=== PATIENT | male | born 1995 | race Caucasian/White ===

== ENCOUNTER 2017-08-17 14:03 | Emergency (ER) | payer OTHER ==
[2017-08-17 14:38] LABS: % IMMATURE GRANULYOCYTES 0.4 % (0.0-1.1); ABSOLUTE IMMATURE GRANULOCYTES 0.03 10^3/uL (0.00-0.10); ADD DIFF? NO; ADD MORPH? NO; ADD SCAN? NO; ATYPICAL LYMPHOCYTE FLAG 10 (0-99); FRAGMENT RBC FLAG 0 (0-99); HEMATOCRIT 50.8 % (40.0-51.0); HEMOGLOBIN 17.3 g/dL (13.7-17.5); LEFT SHIFT FLG 0 (0-99); LIPEMIA HEMOLYSIS FLAG 90 (0-99); MEAN CELL HEMOGLOBIN 31.9 pg (27.9-34.1); MEAN CELL HEMOGLOBIN CONCENTR. 34.1 g/dL (32.4-36.7); MEAN CELL VOLUME 93.7 fL (81.5-99.8); MEAN PLATELET VOLUME 9.9 fL (8.7-11.7); PLATELET CLUMPS FLAG 40 (0-99); PLATELET COUNT 338 10^3/uL (150-400); RED BLOOD CELL COUNT 5.42 10^6/uL (4.40-6.38); RED CELL DISTRIBUTION WIDTH 12.8 % (11.5-15.2)
[2017-08-17 14:56] LABS: ANION GAP 16 mEq/L (8-16); CALCIUM 10.1 mg/dL (8.5-10.4); CARBON DIOXIDE 25 mEq/l (22-31); CHLORIDE 102 mEq/L (97-110); ETHANOL SERUM 157 mg/dL (0-10); GLOMERULAR FILTRATION RATE > 60; GLUCOSE 63 mg/dL (70-100); POTASSIUM 4.2 mEq/L (3.5-5.2); SALICYLATE < 1.0 mg/dL (2.0-20.0); SODIUM 143 mEq/L (134-144)
--- NOTE | 2017-08-17 15:22 | EDPHY ---
H & P Smoking Status: Current every day smoker Time Seen by Provider: 08/17/17 15:04 HPI/ROS: CHIEF COMPLAINT: Overdose, suicidal ideation HISTORY OF PRESENT ILLNESS: 22-year-old male with a history of alcoholism and depression presents after an overdose. He was feeling quite depressed last night and took an overdose of Flexeril, 15 tablets at 7:00 p.m.. He also drank a lot of vodka. He was found this morning on the couch by his roommate. He was minimally responsive. His father brought him to the emergency department. He continues to feel depressed and suicidal. One prior suicidal attempt and mental health admission. REVIEW OF SYSTEMS: Constitutional: No fever, no chills Eyes: No visual changes ENT: No sore throat Respiratory: No cough, no shortness of breath Cardiac: No chest pain Gastrointestinal: No nausea, no vomiting, no abdominal pain Genitourinary: no dysuria Musculoskeletal: No leg pain or swelling Skin: No rash Neurological: No headache (Filomena Leach) Past Medical/Surgical History: Depression Alcoholism (Filomena Leach) Social History: Works at [employer] and [employer] (Filomena Leach) Physical Exam: General Appearance: Drowsy, answers most questions, speech slightly slurred Eyes: Pupils equal and round, no conjunctival pallor or injection ENT, Mouth: Mucous membranes moist Neck: Normal inspection Respiratory: Lungs are clear to auscultation Cardiovascular: Regular rate and rhythm Gastrointestinal: Abdomen is soft and nontender Neurological: drowsy, oriented, nonfocal exam Skin: Warm and dry Extremities: normal inspection, no tenderness or swelling Psychiatric: flat affect (Filomena Leach) Constitutional: Initial Vital Signs Temperature (C) 36.6 C 08/17/17 14:05 Heart Rate 88 08/17/17 14:05 Respiratory Rate 15 08/17/17 14:05 Blood Pressure 124/76 H 08/17/17 14:05 O2 Sat (%) 98 08/17/17 14:05 O2 Delivery Mode Room Air Allergies/Adverse Reactions: No Known Allergies Allergy (Unverified 08/17/17 14:10) Home Medications: Medication Instructions Recorded GABAPENTIN 100 08/17/17 LAMOTRIGINE 08/17/17 Latuda 08/17/17 Medical Decision Making ED Course/Re-evaluation: This patient presents 20 hours after an overdose of Flexeril. He also intoxicated with alcohol. I placed him on a mental health hold. Once he is sober, he will be cleared for mental health evaluation. 11:00 p.m.-signed over to Dr. Maguire at shift change. (Filomena Leach) 4:15 a.m.- The patient remained stable throughout his time in the emergency room. He was evaluated by mental health. He has been accepted for placement at [facility] by Dr. Moore. I have completed the EMTALA form. (Diane Maguire) Differential Diagnosis: Differential diagnosis includes though it is not limited to suicidal ideation, overdose, acute psychosis, self-injury, alcohol withdrawal. (Filomena Leach) - Data Points Laboratory Results: Laboratory Results 08/17/17 14:27 08/17/17 14:27 08/17/17 20:40 Urine Opiates Screen NEGATIVE ng/mL ng/mL (NEGATIVE) Urine Barbiturates NEGATIVE ng/mL ng/mL (NEGATIVE) Ur Phencyclidine Scrn NEGATIVE ng/mL ng/mL (NEGATIVE) Ur Amphetamines Screen NEGATIVE ng/mL ng/mL (NEGATIVE) U Benzodiazepines Scrn 238 ng/mL ng/mL (NEGATIVE) Urine Cocaine Screen NEGATIVE ng/mL ng/mL (NEGATIVE) U Marijuana (THC) Screen 56 ng/mL ng/mL (NEGATIVE) Departure - Departure Disposition: Other Psych, Not [place] Clinical Impression: Suicidal ideation Alcoholic intoxication Qualifiers: Complication of substance-induced condition: uncomplicated Qualified Code(s): F10.920 - Alcohol use, unspecified with intoxication, uncomplicated Overdose Qualifiers: Encounter type: initial encounter Injury intent: intentional self-harm Qualified Code(s): T50.902A - Poisoning by unspecified drugs, medicaments and biological substances, intentional self-harm, initial encounter Condition: Fair Referrals: NONE *PRIMARY CARE P,. [Primary Care Provider] - As per Instructions
[2017-08-17 21:54] LABS: PHENCYCLIDINE URINE BCH < 6 ng/ml (NEGATIVE); PHENCYCLIDINE URINE BCH NEGATIVE (NEGATIVE); TETRAHYDROCANNABINOL URINE 56 ng/mL (NEGATIVE)
[2017-08-17 23:30] VITALS: RESP 16
[2017-08-18 05:58] VITALS: BP 127/64; PULSE 76; TEMP 97.5; O2SAT 96
== END 2017-08-18 05:55 ==
LOC: EEVIPCON 14:03
DX: T48.1X2A Poisoning by skeletal muscle relaxants [neuromuscular blocking agents], intentional self-harm, initial encounter (principal); F10.920 Alcohol use, unspecified with intoxication, uncomplicated; F17.200 Nicotine dependence, unspecified, uncomplicated
CPT/HCPCS: 80307; G0480

== ENCOUNTER 2018-10-30 12:41 | Inpatient (IN) | payer OTHER ==
--- NOTE | 2018-10-30 13:23 | EDPHY ---
H & P Stated Complaint: SI - Personal History Current Tetanus Diphtheria and Acellular Pertussis (TDAP): Yes - Medical/Surgical History Hx Asthma: No Hx Chronic Respiratory Disease: No Hx Diabetes: No Hx Cardiac Disease: No Hx Renal Disease: No Hx Cirrhosis: No Hx Alcoholism: Yes Hx HIV/AIDS: No Hx Splenectomy or Spleen Trauma: No Other PMH: Depression, bipolar - Social History Smoking Status: Current every day smoker Time Seen by Provider: 10/30/18 12:59 HPI/ROS: CHIEF COMPLAINT: Suicidal ideation HISTORY OF PRESENT ILLNESS: 23-year-old male history of bipolar disorder and alcohol use disorder, via private vehicle with his father coming from his psychiatrist's office. Patient has a letter from a psychiatrist Dr. Dany Eugene indicating that the patient has been experiencing active suicidal ideation. Patient confirms this. Patient confirms active suicidal ideation with plan to kill himself "by using helium" . Prior history of suicidal attempt. Denies recent attempt. Denies hallucination. Denies complaints of pain or discomfort. REVIEW OF SYSTEMS: 10 systems reviewed and negative with the exception of the elements mentioned in the history of present illness PAST MEDICAL & SURGICAL HISTORY: Bipolar to with history of hypomania and more recently chronic depression partial remission. Alcohol use disorder. SOCIAL HISTORY: Denies acute alcohol use PHYSICAL EXAM (Prior to examination, patient consented to physical exam, hands were washed and my usual and customary physical exam procedures followed) 1) GENERAL: Well-developed, well-nourished, alert and oriented. Depressed, flat affect. 2) HEAD: Normocephalic, atraumatic 3) HEENT: Pupils equal, round, reactive to light bilaterally. Sclera anicteric. 4) NECK: Full range of motion, no meningeal signs. 5) LUNGS: Clear auscultation bilaterally, no wheezes, no rhonchi, no retractions. 6) HEART: Regular rate and rhythm, no murmur, no heave, no gallop. 7) ABDOMEN: No guarding, no rebound, no focal tenderness, 8) MUSCULOSKELETAL: Moving all extremities, no focal areas of tenderness, no obvious trauma. No peripheral edema or discoloration. 9) BACK: No obvious trauma, no visual or palpable abnormality. 10) SKIN: No rash, no petechiae. 11) Psychiatric: Patient is oriented X 3, there is no agitation. Depressed, flat affect DIFFERENTIAL DIAGNOSIS: In no particular order including but not limited to depression, suicidal ideation, homicidal ideation (Fer Jacob) Constitutional: Initial Vital Signs Heart Rate 88 10/30/18 12:54 Respiratory Rate 16 10/30/18 12:54 Blood Pressure 138/84 H 10/30/18 12:54 O2 Sat (%) 99 10/30/18 12:54 O2 Delivery Mode Room Air O2 (L/minute) 97 Allergies/Adverse Reactions: No Known Allergies Allergy (Unverified 08/17/17 14:10) Home Medications: Medication Instructions Recorded GABAPENTIN 100 08/17/17 LAMOTRIGINE 08/17/17 Latuda 08/17/17 Adderall 10 mg Tablet 10/30/18 Medical Decision Making ED Course/Re-evaluation: 1:20 p.m.: Patient has a letter from his psychiatrist Dr. Dany Eugene indicates the patient has been experiencing suicidal ideation recommends the patient be hospitalized. Consultation with secondary supervising physician Dr. Mckinley Nunez in the ER the patient was placed on M1 hold as he actively endorses suicidal ideation with plan to kill himself "by using helium". 5:00 p.m.: Care turned over to Dr. Filomena Leach at this time, pending mental health evaluation. (Fer Jacob) 6:00 p.m.-accepted to [address] [place] [address] Fonseca (Filomena Leach) - Data Points Laboratory Results: Laboratory Results 10/30/18 13:30 10/30/18 13:30 10/30/18 10/30/18 10/30/18 13:30 13:30 13:29 WBC 9.28 10^3/uL 10^3/uL (3.80-9.50) RBC 4.81 10^6/uL 10^6/uL (4.40-6.38) Hgb 15.1 g/dL g/dL (13.7-17.5) Hct 45.9 % % (40.0-51.0) MCV 95.4 fL fL (81.5-99.8) MCH 31.4 pg pg (27.9-34.1) MCHC 32.9 g/dL g/dL (32.4-36.7) RDW 14.0 % % (11.5-15.2) Plt Count 302 10^3/uL 10^3/uL (150-400) MPV 9.4 fL fL (8.7-11.7) Neut % (Auto) 67.2 % % (39.3-74.2) Lymph % (Auto) 22.2 % % (15.0-45.0) Wetzel % (Auto) 8.8 % % (4.5-13.0) Eos % (Auto) 1.0 % % (0.6-7.6) Baso % (Auto) 0.4 % % (0.3-1.7) Nucleat RBC Rel Count 0.0 % % (0.0-0.2) Absolute Neuts (auto) 6.23 10^3/uL 10^3/uL (1.70-6.50) Absolute Lymphs (auto) 2.06 10^3/uL 10^3/uL (1.00-3.00) Absolute Monos (auto) 0.82 10^3/uL H 10^3/uL (0.30-0.80) Absolute Eos (auto) 0.09 10^3/uL 10^3/uL (0.03-0.40) Absolute Basos (auto) 0.04 10^3/uL 10^3/uL (0.02-0.10) Absolute Nucleated RBC 0.00 10^3/uL 10^3/uL (0-0.01) Immature Gran % 0.4 % % (0.0-1.1) Immature Gran # 0.04 10^3/uL 10^3/uL (0.00-0.10) Sodium 144 mEq/L mEq/L (135-145) Potassium 4.9 mEq/L mEq/L (3.5-5.2) Chloride 104 mEq/L mEq/L (97-110) Carbon Dioxide 27 mEq/l mEq/l (22-31) Anion Gap 13 mEq/L mEq/L (6-14) BUN 9 mg/dL mg/dL (7-23) Creatinine 0.9 mg/dL mg/dL (0.7-1.3) Estimated GFR > 60 Glucose 61 mg/dL L mg/dL (70-100) Calcium 10.0 mg/dL mg/dL (8.5-10.4) Salicylates < 1.0 mg/dL L mg/dL (2.0-20.0) Urine Opiates Screen NEGATIVE (NEGATIVE) Acetaminophen < 10 mcg/mL L mcg/mL (10-30) Urine Barbiturates NEGATIVE (NEGATIVE) Ur Phencyclidine Scrn NEGATIVE (NEGATIVE) Ur Amphetamine Screen NEGATIVE (NEGATIVE) U Benzodiazepines Scrn NEGATIVE (NEGATIVE) Urine Cocaine Screen NEGATIVE (NEGATIVE) U Marijuana (THC) Screen NEGATIVE (NEGATIVE) Ethyl Alcohol < 10 mg/dL mg/dL (0-10) Medications Given: Amphetamine/Dextroamphetamine (Adderall) 10 mg PO DAILY DEBBY Stop: 04/29/19 16:59 Last Admin: 10/30/18 17:49 Dose: 10 mg Departure - Departure Disposition: [facility] IP Clinical Impression: Suicidal ideation, Severe major depression Condition: Fair
[2018-10-30 14:07] LABS: PLATELET COUNT 302 10^3/uL (150-400)
[2018-10-30] MEDS ORDERED: GABAPENTIN 100 MG CAP PO ONE (21:00)
[2018-10-30] MEDS ORDERED: lamoTRIgine 100 MG TAB PO ONE (21:00)
[2018-10-30] MEDS ORDERED: LURASIDONE HCL 20 MG TAB PO SCH (21:00)
--- NOTE | 2018-10-30 21:38 | ASMTTLCEVL ---
TLC Evaluation - Basic Information Evaluation Start Date and 10/30/2018 03:30 PM Time Hospital Status Answers: M1 Hold 72-hr M1 Hold Start Date 10/30/2018 01:17 PM and Time Patient statement Notes: Delisa been severely depressed and suicidal. It got as close to the planning stages as necessary to doing it so I definitely understand my doctors thinking in having me come here. Narrative Notes: Pt is a 23 year old , unmarried male with a hx of bipolar disorder and alcohol use disorder. Pt was brought to [facility] Ed by his father after pts psychiatrist Dr. Eugene recommended pt come in for an evaluation. Pt has been having suicidal ideation for the past few weeks increasing in frequency and intensity with a plan to use helium. Pt stated his plan was to tie a bag over his head then use the helium. Pt states he would not take the steps to save his life if he found himself in a life threatening situation. Pt reports he has suicidal thoughts every day and the only thing that stops him from going through with his plan are his family, knowing it would devastate them. Pt stated he has had depression for approx. 7-8 years, it has gotten worse in the past few months and stated, Just a few months ago, it didnt feel this bad. Diagnosis History Notes: Pt reported a hx of bipolar disorder and alcohol use disorder. Prior suicide attempts Notes: In July 2017, pt overdosed on Flexeril which led to his hospitalization at [facility]. Prior hospitalizations Notes: Pt stated he was in substance abuse tx from November 2016- May 2017 at [facility]. Pt was at [place] last month but pt.s father Compa stated he left the program early, did outpatient for a while and then stopped going all together. Pt was also in another rehab back in May 2018. In July 2017, pt was in [facility] for 1 week. Treatment Responses Notes: Pt stated he found his hospitalization at [facility] helpful. Pt reports he has a hx of relapse following rehab. History of violence Notes: Pt denied any HI or thoughts of harming others. Therapist: Meet Rodríguez Psychiatrist: Dr. Dany Eugene Medications (name, dosage, route, freq uency) Notes: latuda 120mg po daily; lamictal 200mg po daily, adderral XR 40 mg qam and 10 mg q 4pm.. Gabapentin 300 in am and 600 qhs for anxiety and sleep. Per Dr. Eugene: Previously, pt had been on Seroquel (sedated), Abilify (felt weird), Prozac (first hypomania), zoloft (not improved), Vyvance 70mg with partial improvement of ADHD and wellbutrin (panic) Allergies/Reaction Notes: nka. Sleep Notes: wnl. Appetite Notes: wnl. Medical/Surgical history Notes: none reported. Substance use history (frequency, intensity, his tory, duration) Notes: Pt stated he has had problematic drinking for the past few years and in the past has been able to maintain sobriety for about 6 months with a couple of relapses. Pt stated he does not drink every day but drinks, every 2 weeks. Pt stated when he does drink he binges. Three days ago was the last time he had alcohol. Pt stated in the past he has tried LSD, ecstasy, cocaine, and mushrooms. Pt states he does not do these drugs on a regular basis. Pts utox was negative for all substances and bal was.0. Family composition Notes: Pt stated his Dad live here in [place] and his mother lives in [place]. Pt stated he also has older sister and 2 brothers. Need for family Answers: No participation in patient's care Family psychiatric/substance abuse history Notes: Pt reported a hx of alcoholism on his fathers side. Pt reports a hx of depression on his mothers side and stated his mother has depression ad he has a cousin with schizophrenia. Developmental history Notes: Pt reported his parents when he was 1 yo. Pt stated he was dx at age 14 with add but was not put on any medication. Pt denied any concussions/loc. Pt denied any physical/emotional/sexual abuse hx. Abuse concerns Answers: None Marital status/children Notes: Pt is single, no children. Living situation Notes: Pt lives in [facility] in the basement of his sisters house. Sexual history/orientation Notes: Unable to assess. Peer support/family strengths Notes: Pt states he has been isolating and does not see his friends anymore. Pt reports his support system is limited. Education level/history Notes: Pt stated he has completed some college. Work history Notes: Pt stated he is working f/t at [employer]. Notes: None reported. Legal Notes: Pt reports he has a DUI from last year and has lost his drivers license. Pt has completed all his requirements for probation. Sabianist/Spiritual Notes: None that would interfere with tx. Leisure Notes: Pt enjoys playing music, instruments and tennis. Collateral Notes: Father- Compa. Compa states pt continues to relapse on alcohol and he feels pt is not getting better with his brief stays at rehab and states he is very concerned about his mental health. Compa states pt has been isolating and has limited social support and doesn't talk to his family when he is feeling depressed or having suicidal thoughts. Patient's strengths Answers: Artistic/Creative/Musical (Please select at least TWO strengths): Insightful Intelligent Supportive Family Willingness TLC Evaluation - Mental Status Exam Appearance: Answers: Appropriate Eye Contact: Answers: Good/Direct Mood: Answers: Depressed Affect: Answers: Calm Flat Behavior: Answers: Cooperative Speech: Answers: Relevant Logical Clear Coherent Thought Process: Answers: Organized Oriented Alert Intact Insight: Answers: Good Judgement: Answers: Poor Depression Answers: Diminished Interest Signs/Symptoms: Diminished Pleasure Flat Affect Hopelessness Sad Mood Withdrawn Hallucinations: Answers: None Current Stage of Change Answers: Precontemplation Pt reported to have Answers: No suicidal/self-injuring ideation/behavior? Pt reported to be making Answers: Yes suicidal/self-injuring threats? Pt reported to be making Answers: No aggression/assault threats? Ideation/behavior is Answers: Yes chronic? Patient has a specific Answers: Yes plan? Pt has access to means to Answers: Yes execute the plan? Ideation involves Answers: Yes serious/lethal intent? Ideation has Answers: No delusional/hallucinatory content? History of Answers: Yes suicidal/self-injuring ideation, behavior, or threats? History of Answers: No aggressive/assaultive ideation, behavior, or threats? History of serious Answers: No physical harm to self/others while in treatment setting? TLC Evaluation - Suicide/Homicide Risk Suicide Risk Factors: Answers: < 20 or > 40 Years of Age Alcohol/Heavy Drug Use Bipolar Disorder Flat Affect Hopelessness Inadequate Social Support Prior Suicide Attempt(s) Single Homicide/violence risk Answers: None factors: Current Suicidal Answers: Yes Ideation? Current Suicide Ideation Pt stated he has SI every day, most of the day. Frequency: Current Suicidal Ideation Answers: Yes in the Past 48 Hours? Current Suicidal Ideation Answers: Yes in the Past Month? Current Suicidal Answers: Yes Ideation, Worst Ever? Suicide Internal Answers: Absence of Psychosis Protective Factors: Suicide External Answers: Other Notes: Pt's family. Protective Factors: Ranking of patient's Answers: Severe suicidal risk: Ranking of patient's Answers: Low homicidal risk: TLC Evaluation - Wrap-up AXIS I Diagnosis (include DSM-V and ICD-10 codes), must also be entered in [employer], which is the source of truth. Notes: Bipolar II Disorder depressed)severe 296.89 (F31.81) Alcohol Use Disorder, moderate 303.90 (F10.20) Evaluation End Date and 10/30/2018 05:30 PM Time (HH:MM): Date Signed: 10/30/2018 05:48 PM Electronically Signed By:Courtney Hidalgo
--- NOTE | 2018-10-30 21:38 | ASMTTCLDSP ---
TLC Discharge Disposition Disposition: Answers: Admit Discharge Concerns/Recommendations: Notes: In consultation with [facility] ED physician, Mckinley Nunez MD and on-call psychiatrist, Zara Fonseca MD, both concurred that pt appears to meet 27-65 criteria requiring psychiatric hospitalization as pt appears to be at risk of harm to self due to a mental illness condition. Pt was given the 3N prohibited belongings list while in the ED. For inpatient Zara Fonseca MD admission, the following psychiatrist agreed to accept patient for [facility] Date Signed: 10/30/2018 05:47 PM Electronically Signed By:Courtney Hidalgo
[2018-10-30] MEDS ORDERED: ACETAMINOPHEN 325 MG TAB PO PRN (21:45)
[2018-10-30] MEDS ORDERED: MAG HYDROX/AL HYDROX/SIMETH 30 ML UDCUP PO PRN (21:45)
[2018-10-30] MEDS ORDERED: GABAPENTIN 300 MG CAP PO SCH (21:45)
[2018-10-30] MEDS ORDERED: MAGNESIUM HYDROXIDE 30 ML UDCUP PO PRN (21:45)
[2018-10-30] MEDS ORDERED: NICOTINE POLACRILEX 2 MG GUM B ONE (22:08)
[2018-10-30] MEDS: LURASIDONE HCL 40 MG TAB PO SCH (22:11)
[2018-10-30] MEDS: lamoTRIgine 100 MG TAB PO SCH (22:11)
[2018-10-30] MEDS: GABAPENTIN 300 MG CAP PO SCH (22:16)
[2018-10-30] MEDS: NICOTINE POLACRILEX 2 MG GUM B PRN (22:20)
--- NOTE | 2018-10-31 07:35 | ASMTBHMTP ---
Master Treatment Plan Master Treatment Plan Answers: Depressed Mood with for: Suicidal Ideation Date: 10/30/2018 Diagnosis on Admission: BiPolar II Disoder, Severe 296.89 (F31.81) Expected length of stay: 3-5 days Reason for admission: Notes: Per Report: Pt is a 23 year old , unmarried male with a hx of bipolar disorder and alcohol use disorder. Pt was brought to [facility] Ed by his father after pts psychiatrist Dr. Eugene recommended pt come in for an evaluation. Pt has been having suicidal ideation for the past few weeks increasing in frequency and intensity with a plan to use helium. Pt stated his plan was to tie a bag over his head then use the helium. Pt states he would not take the steps to save his life if he found himself in a life threatening situation. Pt reports he has suicidal thoughts every day and the only thing that stops him from going through with his plan are his family, knowing it would devastate them. Pt stated he has had depression for approx. 7-8 years, it has gotten worse in the past few months and stated, Just a few months ago, it didnt feel this bad. Patient's stated presenting problems: Notes: "Because I am depressed." Patient's goals for treatment: Notes: "I don't know" Patient's strengths: Notes: I don't know Identify supports outside of hospital: Notes: I don't know Discharge criteria: Notes: Suicidal Ideation will resolve and patient will have a plan to safely manage recurrent suicidal ideation.* Initial disposition plan/considerations: Notes: I don't know yet. Master Treatment Plan Required Signatures Psychiatrist signature: Answers: Psychiatrist: RN on-shift signature: Answers: RN: Patient signature: Answers: Patient: Date Signed: 10/31/2018 07:35 AM Electronically Signed By:Matthew Salomon
[2018-10-31] MEDS: GABAPENTIN 300 MG CAP PO SCH ×3 (08:12→19:58)
[2018-10-31] MEDS: NICOTINE POLACRILEX 2 MG GUM B PRN ×6 (08:50→17:26)
--- NOTE | 2018-10-31 14:37 | ASMTCMCOM ---
CM Note CM Note Notes: CC contacted Dr. Dany Eugene at ; no answer left detailed VM with all necessary return contact information regarding a follow up appt for client, etc. Waiting to hear back. Date Signed: 10/31/2018 02:36 PM Electronically Signed By:Matthew Salomon
--- NOTE | 2018-10-31 14:42 | ASMTCMCOM ---
CM Note CM Note Notes: CC reached out to client's therapist Meet Rodríguez at ; no answer left detailed VM with all necessary return contact information as well as requesting follow up appts for client.* Date Signed: 10/31/2018 02:41 PM Electronically Signed By:Matthew Salomon
[2018-10-31] MEDS: LORazepam 0.5 MG TAB PO PRN (16:33)
[2018-10-31] MEDS ORDERED: ADDERALL 10 MG TAB PO SCH (17:00)
--- NOTE | 2018-10-31 17:02 | BAPA ---
DATE OF SERVICE: 10/31/2018 CHIEF COMPLAINT: "My depression has gotten really bad." HISTORY OF PRESENT ILLNESS: Patient is a 23-year-old male with approximately an 8 to 10-year history of rather chronic and treatment-resistant depression. He reports previous diagnoses of major depression, and then more recently bipolar disorder. He has been managed in the community by Dr. Carlton Eugene, and called him yesterday stating that he was feeling more suicidal. The [facility] senior linux administrator in the emergency department spoke with Dr. Eugene and was able to elicit the information that he had been trying to make various medication changes, but that nothing had been helpful. The patient had been declining, and it was felt that he represented immediate danger to himself. He was referred to the emergency department for further evaluation and placed on an M1 hold. He was ultimately admitted to the [facility] inpatient unit for further evaluation. I interviewed him today, and he described a course of treatment over 8-10 years starting in adolescence without a specific preceding incident. He states, "My depression started light but then got worse." He states that he was treated with several antidepressants in the past, initially with Prozac. He states that after some amount of time, he is unclear, he had a manic episode, and the Prozac was stopped. He was then tried on a series of medications, including Seroquel, that caused sedation; Abilify, that "made me feel dissociative;" Zoloft, that did "nothing;" and Wellbutrin, that caused agitation. He reports intermittent alcohol use disorder during this time, with numerous relapses and several stays in substance abuse treatment, including prolonged residential treatment. He states that he had a pattern over time of approximately 3-4 week intervals where his mood would be good, and then he would begin to feel more anxious, ultimately causing him to feel more depressed and then leading to a relapse. He states the relapse would last 1-2 days, at which time he would drink a half or more of a 5th of alcohol, and then stop. He states he then would function well again until he entered the predictable cycle of decline, increased anxiety , and then drinking. He describes the drinking as a mechanism "to shut down" after this buildup of stress. He states, "I let things build up, and then I have a lot of anxiety, and then I drink to let that go." He notes stressors of having few friends and no intimate relationships. No spiritual or other support groups, and no active recovery. He states that positive factors, such as exercise, music, reading, and interactions with his family have also diminished over the last 6-8 weeks. He states that in that time he has felt that, "I dropped back to severe depression." He describes this as intense feelings of depression and sadness, poor energy and motivation, feelings of worthlessness, diffuse body pains, discontinuous and non-restorative sleep, excessive sleep at times, diffuse body pains, and feelings of helplessness and hopelessness. He states that the suicidal ideations have been around for many years, but that they will come and go. He states that about a week ago, "I got to the point of planning how to do it." He states that he decided to commit suicide by suffocation with helium and began to put this plan into place. 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 Eugene for medication management and an outpatient psychotherapist named Meet Rodríguez. He reports a good relationship with both of these providers. He has had the 1 previous suicide attempt by overdose in July of 2017, for which he was hospitalized at [facility] for approximately a week. He stated that this was helpful. He has previously tried Seroquel, Prozac, Abilify, Zoloft, and Wellbutrin, as mentioned above. He states that Dr. Eugene mentioned possible trial of lithium at a recent appointment. The patient states that he was diagnosed with ADHD in the last 2 years and had initial trial of Ritalin, which worked for a while, but then wore off, followed by a trial of Adderall, which he states helps him considerably. He states that it works better than benzodiazepines for anxiety and can also help him sleep. He believes that he is more emotionally stable and can resist the urge to drink when he is taking the Adderall more than he can if he is not. He has had three previous stays in substance abuse treatment programs. The longest was at [facility] for 90 days in 2016. The most recent was at [facility] in [place]. He states he left there because he did not like the physical accommodations nor the psychiatrist. ALLERGIES: No known medical allergies. CURRENT MEDICATIONS: Latuda 120 mg daily, Lamictal 200 mg daily, Adderall XR 40 mg in the morning and 10 mg at 4 p.m., gabapentin 300 mg in the morning and 600 mg at h.s. PAST MEDICAL HISTORY: Noncontributory. No history of central nervous system disease. He states he did fall down 1 time when he was drunk and hit the back of his head, requiring stitches, but that he was intoxicated enough not to remember the details of this. SOCIAL HISTORY: Patient lives in [place], [place] with his sister. He is close to her. His father lives in [place], and he states he has a good relationship with him as well. His mother lives in [place], and he states that she has "issues," including chronic back pain and depression. He is a high school graduate with some college, though is not currently in school. He was studying psychology. 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 He has a past DUI, and his license was suspended until this coming march. SUBSTANCE ABUSE HISTORY: Patient states he has used alcohol since the age of 14 , and his longest sobriety in that time has been 8 months, from November to June of 2017. The first 3 months of this were at the [facility] residential rehabilitation program, and then another 5 months of sobriety afterward. The patient denies ever being active in a recovery program as "I don 't like the God thing with AA." Marijuana, patient states that he first used at 14. Smokes 3-4 times a week, "when I can afford it." Patient has a history of using LSD, ecstasy, cocaine, and mushrooms in the past, but states he has not done these on a regular basis. FAMILY HISTORY: Has reported a history of alcoholism on his father's side and depression on his mother's side, including his mother. He reports a cousin with schizophrenia. ADMITTING LABORATORY: CBC is normal. Serum chemistries are normal. Hemoglobin A1c and lipid profile and TSH are pending. Urine drug screen shows no substances of abuse, and alcohol is less than detectable. MENTAL STATUS EXAMINATION: Reveals a healthy-appearing, well-groomed, appropriately dressed male. He interacts well with the examiner, displaying good eye contact and overall calm and pleasant demeanor. His affect is somewhat restricted, though generally euthymic, stable and appropriate. His mood is described as "really depressed." His thought process is linear and goal directed. His thought content reveals no evidence of psychosis. He is alert and oriented to person, place, time, and situation, and his sensorium is clear. His intellect appears to be average to above average as evidenced by his educational and occupational history, his fund of knowledge, and vocabulary. He continues to endorse active thoughts of suicide, stating that he is afraid he would act to harm himself if he was not in the hospital, though "I always feel better when I'm in the hospital." His insight and judgment appear to be good. IMPRESSION: Bipolar 1 disorder, most recent episode depressed, severe, without psychosis; alcohol use disorder, severe; cannabis use disorder, moderate to severe; chronic illness, recurrent illness; social isolation; legal problems. Patient is a 23-year-old male with a history of chronic depression and substance dependence. He presents at this time with recurrent depression that has been unremitting over the last decade. He has had partial response to certain medications and had a manic episode with fluoxetine. His current regimen is certainly standard of care, though does not appear to be wholly effective. It could be that he needs medication changes and/or adjustments. It could also be that his ongoing addictions are interfering with the benefit of the medication. He describes a cycle of his mood which mirrors an addiction cycle where he will do well and then begin to have a period of increasing anxiety and internal tension. This will culminate with the behavior of drinking , and then after that, will follow a refractory period of shame and guilt, and then him feeling good again, followed by the increase in internal tension and relapse. This is certainly a classic addictive cycle, though is occurring over a month rather than a day. I think it is certainly worth investigating and understanding better. He states that Dr. Eugene wanted him on lithium, and I will certainly discuss the case with Dr. Eugene in regard to our next step. PLAN: 1. [facility]1 hold. 2. Monitor for any acts of self-harm attempt and continue suicide precautions for now. 3. Will continue his previous outpatient medications until I am able to discuss the case more fully with Dr. Eugene. Will obtain an EKG and laboratory in case we do use [place]. 4. Will engage in individual, group, and milieu psychotherapies and serial clinical interviews to better understand his clinical condition. 5. Estimated length of stay is 3-5 days. /[id number]/MODL MTDD
--- NOTE | 2018-10-31 17:40 | PDMN ---
Medical Necessity Medical necessity: Pt meets inpt criteria per MD order and [facility] B-[id number], Bipolar Disorders, Adult: Inpatient Care, 4 days. 23 y/o on M1 hold due to risk of harm to self, admitted w/bipolar I disorder, most recent episode depressed, severe, without psychosis; alcohol use disorder, severe; cannabis use disorder, mod to severe. Pt requires inpt psychiatric hospitalization at this time for further eval/management of above.
--- NOTE | 2018-10-31 17:59 | CPEKG ---
Test Reason : OPEN Blood Pressure : / mmHG Vent. Rate : 068 BPM Atrial Rate : 190 BPM P-R Int : 128 ms QRS Dur : 094 ms QT Int : 372 ms P-R-T Axes : 047 088 066 degrees QTc Int : [address] ELEV, PROBABLE NORMAL EARLY REPOL PATTERN Confirmed by Cholo Quach ([id number]) on 10/31/2018 5:58:52 PM Referred By: Confirmed By:Cholo Quach
[2018-10-31] MEDS: lamoTRIgine 100 MG TAB PO SCH (19:57)
[2018-10-31] MEDS: LURASIDONE HCL 40 MG TAB PO SCH (19:58)
[2018-11-01] MEDS: GABAPENTIN 300 MG CAP PO SCH ×3 (08:31→19:06)
[2018-11-01] MEDS: NICOTINE POLACRILEX 2 MG GUM B PRN ×7 (08:58→18:14)
[2018-11-01] MEDS: LORazepam 0.5 MG TAB PO PRN ×2 (12:38→19:10)
[2018-11-01] MEDS ORDERED: ADDERALL 10 MG TAB PO SCH ×2 (14:06→17:00)
--- NOTE | 2018-11-01 14:31 | ASMTCMCOM ---
CM Note CM Note Notes: CC was able to speak to Mckinley Holland regarding a referral for this client. He noted, for CC to fax over clinical(s)today and have client call in tomorrow to "complete a phone screen, etc." He also, noted that the earliest admit would be early next week poss. Monday or Monday if client is found to be appropriate for the program. CC will advise [place] team.* Date Signed: 11/01/2018 02:30 PM Electronically Signed By:Matthew Salomon
--- NOTE | 2018-11-01 15:46 | SOAPPROG ---
SOAP Progress Note Assessment/Plan: Assessment: Plan: 11/01/18 15:48 Mood: Improved, but overall picture remains unstable. Will proceed with lithium trial. The risks, benefits and alternatives of this are discussed with pt and he agrees. CC is communicating with [facility] and we will hopefully be able to send referral prior to d/c. Subjective: Pt seen, discussed with staff, interviewed in Treatment Team meeting and seen in family meeting. He reports feeling "a lot better" today with less SI. Remains committed to continued recovery work and psychotherapy. Father asks about [facility] program and pt is agreeable to this. CC will look into this. Father produces letter from Dr. Eugene outlining plan to switch to lithium. I discussed this with pt and his father and they are agreeable. Pt remains very focused on restarting Adderall KATIE. Objective: Vital Signs Temp Pulse Resp BP Pulse Ox 36.7 C 79 14 119/56 L 96 11/01/18 06:00 11/01/18 06:00 11/01/18 06:00 11/01/18 06:00 11/01/18 06:00 MSE: Calm, coop, interactive. Affect is euthymic, stable, approp. Mood is "better." TP is linear. TC reveals no psychosis. SI "better." - Time Spent With Patient Time Spent With Patient: 35" ICD10 Worksheet Patient Problems: Problems Problem Status Onset Severe major depression Acute Suicidal ideation Acute
[2018-11-01] MEDS: LURASIDONE HCL 40 MG TAB PO SCH (19:06)
[2018-11-01] MEDS: lamoTRIgine 100 MG TAB PO SCH (19:07)
[2018-11-02 06:55] VITALS: BP 108/59
[2018-11-02] MEDS: GABAPENTIN 300 MG CAP PO SCH ×2 (07:56→12:32)
[2018-11-02] MEDS: ADDERALL 20 MG TAB PO SCH ×2 (08:43→13:54)
[2018-11-02] MEDS ORDERED: AMPHETAMINE PO SCH (09:00)
[2018-11-02] MEDS ORDERED: DEXTROAMPHETAMINE PO SCH (09:00)
[2018-11-02] MEDS: NICOTINE POLACRILEX 2 MG GUM B PRN ×2 (12:32→14:24)
== END 2018-11-02 16:17 | disposition home or self-care (01) | DRG 885 ==
LOC: BBEH 21:00
PROVIDERS: ADMIT Psychiatry & Neurology Behavioral Neurology & Neuropsychiatry; ATTEND Psychiatry & Neurology Psychiatry
DX: F31.4 Bipolar disorder, current episode depressed, severe, without psychotic features (principal); F10.20 Alcohol dependence, uncomplicated; F12.20 Cannabis dependence, uncomplicated; F17.210 Nicotine dependence, cigarettes, uncomplicated
CPT/HCPCS: 80305; G0480